=== PATIENT | male | born 1965 | race Caucasian/White ===

== ENCOUNTER 2017-07-26 06:29 | Emergency (ER) | payer OTHER ==
[2017-07-26] MEDS ORDERED: PHENYLEPHRINE 10 MG/ML SDV ONE (06:48)
[2017-07-26] MEDS ORDERED: ONDANSETRON 4 MG/2 ML VIAL ONE (06:56)
[2017-07-26 07:00] VITALS: TEMP 97.9
[2017-07-26] MEDS ORDERED: LORazepam 2 MG/ML INJ ONE (07:02)
[2017-07-26] MEDS ORDERED: PHENYLEPHRINE HCL 100 MCG/ML SYR IVP ONE (07:15)
[2017-07-26] MEDS ORDERED: ONDANSETRON 4 MG/2 ML VIAL IVP ONE (07:19)
[2017-07-26] MEDS ORDERED: LORazepam 2 MG/ML INJ IVP ONE (07:20)
[2017-07-26] MEDS ORDERED: PHENYLEPHRINE HCL 100 MCG/ML SYR ONE (07:27)
--- NOTE | 2017-07-26 07:27 | EDPHY ---
H & P Smoking Status: Never smoked Time Seen by Provider: 07/26/17 06:37 HPI/ROS: CC: Prolonged erection HPI: This 51-year-old male with past medical history of prostate cancer status post radical prostatectomy presents to emergency department tonight with an erection that has been ongoing for 7.5 hours after self-injection of Alprostadil /Papaverine/Phentolamine. He is in severe pain. Denies other symptoms. REVIEW OF SYSTEMS: Constitutional: No fever. Respiratory: No shortness of breath. Cardiac: No chest pain. Gastrointestinal: No abdominal pain, no vomiting. Genitourinary: No dysuria. Musculoskeletal: No back pain. Skin: No rashes. (Vale Wilson) Past Medical/Surgical History: Past medical history includes prostate cancer Past surgical history includes radical prostatectomy Allergy to sulfa which the patient states causes a headache Medications include alprostadil/papaverine/phentolamine injection (Vale Wilson) Physical Exam: General Appearance: Alert, severe distress. Eyes: Pupils equal and round no pallor or injection. ENT, Mouth: Mucous membranes are moist. Respiratory: Non-labored respirations. Cardiovascular: Normal peripheral perfusion. Gastrointestinal: Abdomen nondistended. : erection Neurological: Awake and alert, motor exams grossly normal. Skin: Warm and dry. Musculoskeletal: Neck is supple. Extremities are symmetrical, full range of motion. Psychiatric: Patient is oriented X 3. DIFFERENTIAL DIAGNOSIS: After history and physical exam differential diagnosis was considered for but not limited to low flow priapism (Vale Wilson) Constitutional: Initial Vital Signs Temperature (C) 97.9 F 07/26/17 06:53 Heart Rate 84 07/26/17 06:53 Respiratory Rate 20 07/26/17 06:53 Blood Pressure 148/84 H 07/26/17 06:53 O2 Sat (%) 98 07/26/17 06:53 O2 Delivery Mode Room Air Allergies/Adverse Reactions: Sulfa (Sulfonamide Antibiotics) Allergy (Unknown, Verified 07/26/17 06:51) Home Medications: Medication Instructions Recorded Alprostadil 07/26/17 Cephalexin [Keflex] 500 mg PO TID #21 cap 07/26/17 Papaverine 07/26/17 Phentolamine Mesylate 07/26/17 Medical Decision Making ED Course/Re-evaluation: 8:[address] Ness was successfully able to aspirate and irrigate and detumesce the priapism. He recommends Keflex and follow-up. Patient is happy with this. 8:20 a.m. the patient continues to do well. He is eager to go. (Noel Mendes ) The patient was seen and examined, vital signs reviewed. An IV was placed and the patient was given 4 mg of morphine. Urology was called immediately upon the patient's arrival to the emergency department and arrived in a prompt fashion. Please refer to Urology note. The patient was signed out to ER Dr. Noel Mendes. (Vale Wilson) Differential Diagnosis: Partial list of the Differential diagnosis considered include but were not limited to; priapism, medication reaction and although unlikely based on the history and physical exam, I also considered high-flow priapism, infection, urethral trauma. (Noel Mendes) - Data Points Medications Given: Discontinued Medications Lorazepam (Ativan Injection) 1 mg IVP EDNOW ONE Stop: 07/26/17 07:21 Last Admin: 07/26/17 07:22 Dose: 1 mg Morphine Sulfate (Morphine) 4 mg IVP EDNOW ONE Stop: 07/26/17 06:44 Last Admin: 07/26/17 07:13 Dose: 4 mg Ondansetron HCl (Zofran) 4 mg IVP EDNOW ONE Stop: 07/26/17 07:20 Last Admin: 07/26/17 07:21 Dose: 4 mg Phenylephrine HCl (Neosynephrine) 100 mcg IVP EDNOW ONE Stop: 07/26/17 07:16 Last Admin: 07/26/17 07:49 Dose: 100 mcg Departure - Departure Disposition: Home, Routine, Self-Care Clinical Impression: Priapism, drug-induced Condition: Fair Instructions: Priapism (ED) Referrals: Patient,NotPresent [Unknown] - As per Instructions Micha Ness MD [Medical Doctor] - As per Instructions Prescriptions: Cephalexin [Keflex] 500 mg PO TID #21 cap
[2017-07-26 08:18] VITALS: BP 128/72; PULSE 80; RESP 12; O2SAT 95
--- NOTE | 2017-07-26 08:44 | GOP ---
[f rep st] OPERATIVE REPORT DATE OF OPERATION: 07/26/2017 SURGEON: Micha Ness MD PREOPERATIVE DIAGNOSIS: Priapism. POSTOPERATIVE DIAGNOSIS: Priapism. PROCEDURE PERFORMED: Corporal spongiosal puncture with irrigation of penis. FINDINGS: INDICATIONS: Patient is a 51-year-old male with a history of prostate cancer status post radical pro statectomy. He has been using TriMix for erections. Approximately 7.5 hours before arrival to the e mergency department, he gave himself a standard injection. He fell asleep and woke this morning in s evere pain, with a full firm erection. He has no nausea, vomiting, fevers, or chills. DESCRIPTION OF PROCEDURE: After giving the patient IV Ativan and pain medication, his penis was ster ilely prepped and draped. A 16-gauge Angiocath was passed into the right glans, into the corporal marzena dy. A significant amount of old dark blood was expelled. Irrigation with saline was then carried ou t. 1 mL of dilute phenylephrine was then injected, and additional irrigation carried out. The erect ion was approximately 80% relieved. The angiocatheter was removed and observation was carried out. Patient was otherwise stable. He is instructed to continue taking Sudafed twice daily, will be given a dose of Keflex. PAST MEDICAL HISTORY: Prostate cancer. PAST SURGICAL HISTORY: Radical prostatectomy. MEDICATIONS: He is on no regular medicines. SOCIAL HISTORY: He does not smoke. EXAM: He is in moderate distress. He has a full priapism. Urethral meatus. /[id number]/MODL
== END 2017-07-26 08:21 | disposition home or self-care (01) ==
LOC: CED 06:29
PROC: 3E1N38Z Irrigation of Male Reproductive using Irrigating Substance, Percutaneous Approach (ICD-10-PCS; principal; 2017-07-26)
DX: N48.33 Priapism, drug-induced (principal); Z85.46 Personal history of malignant neoplasm of prostate
CPT/HCPCS: 96374; J2060; J2370; J2405